=== PATIENT | female | born 1965 | race Caucasian/White ===

== ENCOUNTER → 2018-06-03 | Outpatient (CLI) | payer OTHER ==
--- NOTE | 2018-06-05 12:22 | MM ---
Reason for exam: screening (asymptomatic). Last mammogram was performed 5 years and 10 months ago. Physical Findings: A clinical breast exam by your physician is recommended on an annual basis and results should be correlated with mammographic findings. MG Screening Mammo w CAD Bilateral CC and MLO view(s) were taken. Prior study comparison: August 07, 2012, bilateral digital screening mammo w/CAD. There are scattered fibroglandular densities. No suspicious abnormality. No significant changes when compared with prior studies. ASSESSMENT: Negative, BI-RAD 1 RECOMMENDATION: Routine screening mammogram of both breasts in 1 year.
== END | disposition home or self-care (01) ==
LOC: RADMAMWWP 14:27
PROVIDERS: ATTEND Family Medicine
DX: Z12.31 Encounter for screening mammogram for malignant neoplasm of breast (principal)
CPT/HCPCS: 77067

== ENCOUNTER 2021-10-28 15:13 | Emergency (ER) | payer OTHER ==
[2021-10-28 15:20] VITALS: BP 145/81; PULSE 88; RESP 16
[2021-10-28] MEDS ORDERED: HYDROmorphone 1 MG/ML 1 ML SYRINGE IM STA (15:34)
--- NOTE | 2021-10-28 16:38 | XR ---
EXAMINATION TYPE: XR chest 2V DATE OF EXAM: 10/28/2021 COMPARISON: 12/20/2012 HISTORY: Fall. Chest pain TECHNIQUE: FINDINGS: Heart and mediastinum are normal. Lungs are clear. Diaphragm is normal. Bony thorax is inta ct. IMPRESSION: Normal chest. No change.
--- NOTE | 2021-10-28 16:40 | XR ---
EXAMINATION TYPE: XR scapula bilateral DATE OF EXAM: 10/28/2021 COMPARISON: NONE HISTORY: Pain TECHNIQUE: 2 views each scapula FINDINGS: I see no fracture nor dislocation. Joint spaces are fairly normal. IMPRESSION: Negative bilateral scapula exam.
--- NOTE | 2021-10-28 17:13 | CT ---
EXAMINATION TYPE: CT brain cspine wo con DATE OF EXAM: 10/28/2021 COMPARISON: None HISTORY: Fall off ladder CT DLP: 1459.3 mGycm Automated exposure control for dose reduction was used. Ventricles have normal size. There is no mass effect or midline shift. There is no sign of intracrani al hemorrhage. Calvarium is intact. There is normal aeration of the mastoid sinuses. Cervical vertebra have normal alignment. There is degenerative disc space narrowing at C5-6 and C6-7. Facet joints are intact. IMPRESSION: No cervical spine fracture. Mild degenerative disc changes in the lower cervical spine. Negative CT scan of the brain.
[2021-10-28] MEDS ORDERED: BACLOFEN 10 MG TAB PO STA (17:29)
--- NOTE | 2021-10-28 17:30 | ED ---
Fall HPI - General Chief Complaint: Fall Stated Complaint: fall off ladder Time Seen by Provider: 10/28/21 15:27 Source: patient Mode of arrival: EMS - History of Present Illness Initial Comments: Patient is a 55-year-old female who presents for evaluation of fall. Patient states she was on a ladder at 4-5 feet when a tree branch neck and over and she fell onto the grass. Patient fell on her back and hit her head. She is not on blood thinners. She did not lose consciousness. She was able to ambulate after the fall. Patient reports a headache, intermittent dizziness, and bilateral scapula pain. She also reports chest wall tenderness. She denies chest pain shortness of breath. She has not experienced any visual symptoms, nausea, vomiting. - Related Data Home Medications Medication Instructions Recorded Confirmed Omeprazole [PriLOSEC] 20 mg PO HS 01/28/14 06/21/14 amLODIPine [Norvasc] 5 mg PO HS 01/28/14 06/21/14 diphenhydrAMINE [Benadryl] 25 mg PO DAILY PRN 01/28/14 06/21/14 Previous Rx's Medication Instructions Recorded HYDROcodone/APAP 10-325MG [[place] 1 - 2 each PO Q6H PRN #40 tab 02/10/14 10] Baclofen 10 mg PO TID #15 tab 10/28/21 Allergies Allergy/AdvReac Type Severity Reaction Status Date / Time hydrocodone AdvReac Itching Verified 06/21/14 11:03 Review of Systems ROS Statement: Those systems with pertinent positive or pertinent negative responses have been documented in the HPI. ROS Other: All systems not noted in ROS Statement are negative. Past Medical History Past Medical History: Blood Disorder, Hypertension Additional Past Medical History / Comment(s): hx polycythemia History of Any Multi-Drug Resistant Organisms: None Reported Past Surgical History: Orthopedic Surgery Additional Past Surgical History / Comment(s): hx bilat knee surgeries-since age 9/rt. knee replacement 02/07/14 Past Anesthesia/Blood Transfusion Reactions: No Reported Reaction Past Psychological History: No Psychological Hx Reported Past Alcohol Use History: Rare Past Drug Use History: None Reported - Past Family History Mother Family Medical History: Cancer, Coronary Artery Disease (CAD), Deep Vein Thrombosis (DVT) Additional Family Medical History / Comment(s): mom and dad cardiac issues mom- multiple sclerosis brother-open heart (drug related) father-cancer pancreas mom-polycythemia, brother,daughter, grandfather, and uncles also General Exam General appearance: alert, in no apparent distress Head exam: Present: atraumatic, normocephalic, normal inspection Eye exam: Present: normal appearance, PERRL, EOMI. Absent: scleral icterus, c onjunctival injection, periorbital swelling Neck exam: Present: normal inspection, full ROM. Absent: tenderness Respiratory exam: Present: normal lung sounds bilaterally, chest wall tenderness (At the middle sternum). Absent: respiratory distress, wheezes, rales, rhonchi, stridor Cardiovascular Exam: Present: regular rate, normal rhythm, normal heart sounds. Absent: systolic murmur, diastolic murmur, rubs, gallop, clicks GI/Abdominal exam: Present: soft, normal bowel sounds. Absent: distended, tenderness, guarding, rebound, rigid Back exam: Present: normal inspection, full ROM. Absent: tenderness Neurological exam: Present: alert, oriented X3, CN II-XII intact Psychiatric exam: Present: normal affect, normal mood Skin exam: Present: warm, dry, intact, normal color. Absent: rash Course Vital Signs 10/28/21 15:17 Pulse Rate 88 Respiratory 16 Rate Blood Pressure 145/81 O2 Sat by Pulse 98 Oximetry Medical Decision Making - Medical Decision Making This is a 55-year-old female who presents for evaluation of fall off a 5 foot ladder. Thorough history and examination were performed. Patient looks well as an in no apparent distress. She is not on blood thinners. She has not experienced nausea or vomiting. There is chest wall tenderness at the middle sternum. Patient does not have chest pain or shortness of breath. CT of the brain and C-spine without contrast was obtained which is negative for acute process. Chest x-ray and bilateral scapular x-ray show no abnormalities. Pain control with Dilaudid. Results discussed with patient and her . Patient will be discharged with baclofen prescription. Concussion education was provided in detail. Return parameters discussed. Patient is instructed to follow-up with primary care provider. Patient and her verbalized understanding and are agreeable with this plan. Dr. Car is my attending. Disposition Clinical Impression: Fall Disposition: HOME SELF-CARE Condition: Good Instructions (If sedation given, give patient instructions): Concussion (ED) Additional Instructions: Please take medication as directed. Do not drink alcohol or operate machinery while taking baclofen. You may take Motrin or other anti-inflammatories for pain. Return to the emergency department if you experience new, concerning, or worsening symptoms. Prescriptions: Baclofen 10 mg PO TID #15 tab Is patient prescribed a controlled substance at d/c from ED?: No Referrals: Kym Woody MD [Primary Care Provider] - 1-2 days Time of Disposition: 17:28
== END 2021-10-28 17:45 | disposition home or self-care (01) ==
LOC: EC 15:13
DX: M25.512 Pain in left shoulder (principal); I10 Essential (primary) hypertension; Z88.5 Allergy status to narcotic agent; W11.XXXA Fall on and from ladder, initial encounter
CPT/HCPCS: 73010; 71046; 72125; 70450; 99284; 96372; J1170

== ENCOUNTER → 2023-01-30 | Outpatient (CLI) | payer OTHER ==
--- NOTE | 2023-01-30 13:59 | XR ---
EXAMINATION TYPE: XR ankle complete 3 views LT, XR foot complete 3 views LT DATE OF EXAM: 01/30/2023 Comparison: None Clinical History: 57-year-old female S93.402A,S93.602A Findings: Ankle: Ankle mortise is congruent with preservation of the distal tibiofibular overlap. Talar dome is intact . Tiny plantar and posterior calcaneal spurs. Subtalar joint align. Smooth delineation to the Shemar s tendon. No acute fracture, subluxation, dislocation. Foot: Incidental bipartite tibial sesamoid. No acute fracture, subluxation, or dislocation seen. Impression: Ankle and foot without acute osseous abnormality seen.
== END | disposition home or self-care (01) ==
LOC: RADXRMAIN 11:57
PROVIDERS: ATTEND Emergency Medicine
DX: S93.402A Sprain of unspecified ligament of left ankle, initial encounter (principal); S93.602A Unspecified sprain of left foot, initial encounter; X58.XXXA Exposure to other specified factors, initial encounter

== ENCOUNTER → 2024-08-10 | Outpatient (CLI) | payer BC ==
--- NOTE | 2024-08-10 12:34 | CT ---
EXAMINATION TYPE: CT angio chest DATE OF EXAM: 08/10/2024 12:02 PM COMPARISON: . CLINICAL INDICATION: Female, 58 years old with history of I77.89 ASCENDING AORTA ENLARGEMENT; enlarge d aorta TECHNIQUE/CONTRAST: CTA scan of the thorax is performed without and with IV Contrast, patient injected with 100ml mL of I sovue 370, MIP images are created and reviewed these are created on a separate workstation.. CT DLP: 742.4 mGycm, Automated exposure control for dose reduction was used. FINDINGS: Lungs/Pleura: No evidence of focal consolidation, pleural effusion or pneumothorax. Airway: Large airways are patent. Heart: Size within normal limits Vasculature: No evidence for intramural hematoma on noncontrast imaging. No evidence of intimal flap to suggest dissection. No aneurysm identified. Scattered atherosclerotic disease. There is no evidenc e for a filling defect within the pulmonary vasculature to suggest acute pulmonary embolism. The pul monary artery is of normal size. Ascending thoracic aorta is within normal limits for size measuring 37 mm. Mediastinum: No gross evidence of adenopathy. Musculoskeletal: No acute osseous abnormalities Soft Tissues/lymph nodes: Unremarkable. Lower neck: Heterogenous thyroid gland with Thyroid nodule measuring 20 x 33 mm. Upper Abdomen: Left adrenal nodule measuring -1 Hounsfield units and 17 mm There is a subtle partially enhancing lesion in the right liver measuring 32 mm series 6 image 113 IMPRESSION: 1. Normal size of the aorta measuring up to 37 mm. No evidence for aortic aneurysm, dissection or oc clusion. No evidence for pulmonary embolus in the central pulmonary vasculature 2. Arterial enhancing lesion in the middle of the liver which is indeterminate MRI liver mass protoc ol recommended. 3. Heterogenous thyroid gland with Thyroid nodule measuring 24 x 33 mm. This can be completely asses sed with thyroid ultrasound if clinically warranted. 4. Left adrenal nodule compatible with lipid rich adrenal adenoma. Follow up recommendations for incidental pulmonary nodules, if there are any, are per [employer] or [employer]. [email or web address] [facility], , 08/10/2024 12:32 PM
== END | disposition home or self-care (01) ==
LOC: RADCTMAIN 10:54
PROVIDERS: ATTEND Family Medicine
DX: I77.89 Other specified disorders of arteries and arterioles (principal); E04.1 Nontoxic single thyroid nodule; D35.02 Benign neoplasm of left adrenal gland
CPT/HCPCS: 71275; Q9967

== ENCOUNTER → 2024-10-06 | Outpatient (CLI) | payer BC ==
--- NOTE | 2024-10-07 09:05 | NM ---
EXAMINATION TYPE: NM thyroid image w uptake DATE OF EXAM: 10/07/2024 COMPARISON: NONE CLINICAL INDICATION: Female, 58 years old with history of E04.2 NONTOXIC MULTINODULAR GOITER; TECHNIQUE: Thyroid iodine uptake is calculated and images performed after the oral administration of 328 uCi 1-123 Capsule. FINDINGS: There is heterogeneous activity within the thyroid gland. Possible photopenic areas at the lower pole of each thyroid lobe. Further ultrasound evaluation can be performed. The 4 hour iodine uptake is calculated at 6.7% (normal range 8-14%). The 24-hour iodine uptake is calculated at 17.9% (normal range 15-35%). IMPRESSION: 1. Somewhat heterogeneous activity throughout the gland. Possible photopenic areas at the lower pole of each thyroid lobe. Thyroid ultrasound can exclude underlying nodules here. 2. Diminished uptake at 4 hours and uptake at the lower end of the normal range at 24 hours. Correlat e for mild hypothyroidism. [facility], , 10/07/2024 9:03 AM
== END | disposition home or self-care (01) ==
LOC: RADNMMAIN 08:19
PROVIDERS: ATTEND Family Medicine
DX: E04.2 Nontoxic multinodular goiter (principal)
CPT/HCPCS: 78014; A9516